=== PATIENT | male | born 1940 | race Hispanic/Latino ===

== ENCOUNTER 2018-02-27 22:29 | Emergency (ER) | payer MEDICARE ==
[2018-02-27] MEDS ORDERED: ZOFRAN IM ONE (23:31)
[2018-02-27] MEDS ORDERED: MORPHINE IM ONE (23:31)
--- NOTE | 2018-02-27 23:39 | Emergency Department Report ---
HPI - General Chief Complaint: Extremity Injury, Lower Time Seen by Provider: 02/27/18 23:25 - HPI HPI: Room 4 The patient is a 77-year-old male presenting with a chief complaint of hip pain. The patient states she has had left hip pain for the past 2 days. Patient notes he had surgery on his left hip 5 months ago but states he cannot remember the surgeon or where the surgery was performed. Patient states he is developed pounding pain in the left hip for the past 2 days. Patient denies any recent injury. The patient denies any fever. 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) Hx Seizures: Yes Additional medical history: recovered alcoholic,aspiration risk,use of cane due to LLL weakness since prior to CVA - Surgical History Past Surgical History?: Yes Additional Surgical History: broken nose left hip - Family History Family history: no significant - Social History Smoking Status: Current Every Day Smoker (1/2 pack per day) Substance Use Type: None (denies illicit drug use) - Medications Home Medications: Home Medications Medication Instructions Recorded Confirmed Last Taken Type levETIRAcetam [Keppra TAB] 500 mg PO BID 08/28/17 08/31/17 1 Day Ago History ~08/30/17 Digoxin [Lanoxin] 0.125 mg PO DAILY@1700 #30 tablet 09/06/17 Unknown Rx Diltiazem Cd [Cardizem CD] 240 mg PO QDAY #30 capsule 09/06/17 Unknown Rx Rivaroxaban [Xarelto] 20 mg PO QDAY #30 tablet 09/06/17 Unknown Rx levETIRAcetam [Keppra TAB] 750 mg PO BID #60 tablet 09/06/17 Unknown Rx oxyCODONE /ACETAMINOPHEN [Percocet 1 tab PO Q6H PRN #20 tablet 09/06/17 Unknown Rx 5/325 mg] Ibuprofen [Motrin 800 MG tab] 800 mg PO Q8HR PRN #20 tablet 02/28/18 Unknown Rx traMADol [Ultram] 50 mg PO Q6HR PRN #14 tablet 02/28/18 Unknown Rx ED Review of Systems ROS: Stated complaint: L HIP PAIN Other details as noted in HPI Constitutional: denies: fever Eyes: denies: eye pain ENT: denies: throat pain Respiratory: no symptoms reported Cardiovascular: denies: chest pain Endocrine: no symptoms reported Gastrointestinal: denies: abdominal pain Genitourinary: denies: dysuria Musculoskeletal: arthralgia, myalgia Neurological: denies: headache Physical Exam - Physical Exam Physical Exam: GENERAL: The patient is well-developed well-nourished male lying on stretcher not appearing to be in acute distress. [] HEENT: Normocephalic. Atraumatic. Extraocular motions are intact. Patient has moist mucous membranes. NECK: Supple. Trachea midline CHEST/LUNGS: There is no respiratory distress noted. HEART/CARDIOVASCULAR: Regular. There is no tachycardia. 2+ left DP ABDOMEN: Abdomen is soft, nontender. Patient has normal bowel sounds. There is no abdominal distention. SKIN: There is no rash. There is no edema. There is no diaphoresis. NEURO: The patient is awake, alert, and oriented. The patient is cooperative. The patient has normal speech MUSCULOSKELETAL: There is no evidence of acute injury. ED Medical Decision Making - Radiology Data Radiology results: image reviewed (left hip x-ray) interpreted by me: Left hip x-ray-no acute fracture seen. Hardware in place - Differential Diagnosis arthralgia, arthritis, Critical care attestation.: If time is entered above; I have spent that time in minutes in the direct care of this critically ill patient, excluding procedure time. ED Disposition Clinical Impression: Left hip pain Disposition: DC- TO HOME OR SELFCARE Is pt being admited?: No Does the pt Need Aspirin: No Condition: Stable Instructions: Arthralgia (ED) Additional Instructions: Return to the emergency department immediately should you develop worsening symptoms, fever, inability to tolerate food or liquid or any other concerns. Prescriptions: Ibuprofen [Motrin 800 MG tab] 800 mg PO Q8HR PRN #20 tablet PRN Reason: Pain, Moderate (4-6) traMADol [Ultram] 50 mg PO Q6HR PRN #14 tablet PRN Reason: Pain Referrals: PRIMARY CAREMD [Primary Care Provider] - 3-5 Days SALONI SOTOMAYOR MD [Staff Physician] - 3-5 Days (Dr. Sotomayor is an orthopedic surgeon. Please follow-up with him for further evaluation) Time of Disposition: 00:15
[2018-02-28 00:10] VITALS: BP 114/81
--- NOTE | 2018-02-28 00:38 | XRay Report ---
FINAL REPORT PROCEDURE: XR HIP 2-3V LT TECHNIQUE: LEFT hip radiographs, AP and lateral views. HISTORY: pain COMPARISON: No prior studies are available for comparison. FINDINGS: There been left hip arthroplasty. The acetabular and femoral component of the prosthesis is well positioned. No acute fracture. IMPRESSION: Left hip arthroplasty with the hardware properly positioned..
[2018-02-28] MEDS ORDERED: TORADOL IM ONE (00:49)
== END 2018-02-28 05:38 | disposition home or self-care (01) ==
LOC: ED 22:29
DX: M25.552 Pain in left hip (principal); Z86.73 Personal history of transient ischemic attack (TIA), and cerebral infarction without residual deficits; F17.210 Nicotine dependence, cigarettes, uncomplicated
CPT/HCPCS: 73502; 96372; 99283; J1885; J2270; J2405